=== PATIENT | female | born 1935 | race Caucasian/White ===

== ENCOUNTER 2016-05-17 04:36 | Emergency (ER) | payer OTHER ==
[~2016-05-17 04:36] MED LIST: AMLODIPINE BESYL5 MG PO; ASPIRIN81 M1 PO; AUGMENTIN875 MG PO; B-121000 MCG PO; BENAZEPRIL HCL5 MG PO; FLUOXETINE HCL10 M1 PO; FUROSEMIDE20 MG PO; FUROSEMIDE40 MG PO; GABAPENTIN100 MG PO; HUMALOG100 MG/ML SC; IMODIUM A-D2 MG PO; JANUVIA25 MG PO; LEVEMIR FL100 UNIT/M SC; LIPITOR10 MG PO; MILK OF MA400 MG/5 M PO; SENNA-LAX8.6 MG PO
--- NOTE | 2016-05-17 06:02 | DIAGNOSTIC IMAGING REPORT ---
PROCEDURE: XR FOOT 3 VIEWS BILATERAL INDICATION: Diabetes with bilateral feet ulcers. TECHNIQUE: Three views of each foot COMPARISON: Comparison is made radiographs of the left foot on 02/02/2016. FINDINGS: RIGHT FOOT: Moderate soft tissue swelling of the dorsum of the right foot. Osseous structures are markedly osteopenic. Arterial vascular calcifications. There are moderate arthritic change of the right midfoot see (suggest neuropathic changes). An old healed fracture of the base of the proximal phalanx, right second toe. There is no evidence of osteomyelitis. LEFT FOOT: Marked soft tissue swelling of the dorsum of the left foot. Osseous structures are markedly osteopenic. Arterial vascular calcifications. There are marked arthritic change of the left midfoot with past plane as (suggest neuropathic changes). Status post amputation of the left fourth toe. Old healed fracture of the base of the proximal phalanx, left second toe. There is no evidence of osteomyelitis. IMPRESSION: 1. Arterial vascular calcifications compatible with diabetes. 2. Marked osteopenia. 3. Moderate soft tissue swelling of the right foot with marked soft tissue swelling of the left foot. Consider primary lymphedema. 4. 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 5. Status post amputation of left fourth toe. 6. No evidence of osteomyelitis.
--- NOTE | 2016-05-17 07:56 | ED CLINICAL REPORT ---
Clinical Report - Physicians/Mid Levels [facility] [address] [place] [address] 05/17/2016 4:36 Patient: RODOLFO GARCIA Time Seen: 04:59. Arrived- By private vehicle. Historian- patient. History limited by vague historian. HISTORY OF PRESENT ILLNESS Chief Complaint: LOWER EXTREMITY PAIN and ; ;(foot ulcers). This started several days ago and is still present. It was gradual in onset and has been constant. The quality is noted to be aching. Symptoms located in the area of the right foot and left foot. The patient has had redness and swelling. She has had difficulty walking. ( pt previously at wound clinic for BLE diabetic ulcers. pt healed and d/c'd. pt now c/o BLE ulcerations openning 3 days ago. pt requesting MD to look at them and decide whether or not pt would require hospitalization as the last time this occurred pt was admitted to us for approx. 1 week). Patient denies a recent injury. Similar symptoms previously: REVIEW OF SYSTEMS No chills, fever, sweats, calf pain or chest pain. No cough, difficulty breathing, pedal edema, palpitations or abdominal pain. No constipation, nausea, vomiting or urinary problems. All systems otherwise negative, except as recorded above. PAST HISTORY Medications: AmLODIPine Besylate Oral. Aspirin Oral. Benazepril HCl Oral. Gabapentin Oral. Glipizide Oral. HumaLOG Subcutaneous. Januvia Oral. Lantus Subcutaneous. Laxative Pills Oral. PROzac Oral. Simvastatin Oral. Allergies: Ciprofloxacin. Sulfa Antibiotics. SOCIAL HISTORY Never smoker. No alcohol use or drug use. FAMILY HISTORY Denies family medical history. ADDITIONAL NOTES The nursing notes have been reviewed. PHYSICAL EXAM Vital Signs: 05/17/2016 04:53 BP: 151/55. HR: 88. RR: 18. O2 saturation: 98%. Temp: 98 F. Have been reviewed. Appearance: Alert. Eyes: Pupils equal, round and reactive to light. ENT: Pharynx normal. Neck: Neck supple. CVS: Normal heart rate and rhythm. Heart sounds normal. Respiratory: No respiratory distress. Breath sounds normal. Abdomen: Soft and nontender. No organomegaly. Skin: Multiple medium-sized deep oozing and crusted wounds with erythema, tenderness and increased warmth on the right foot and left foot. Extremities: Swelling, warmth, tenderness and erythema present in the right foot and left foot. No fluctuance. LABS, X-RAYS, AND EKG Laboratory Tests: CBC w Diff: (PRESLEY: 05/17/2016 05:25) ( [facility] [place]/17/[place] 06:50) Final results Test Result Flag Units (Reference) WHITE BLOOD COUNT 8.5 K/uL (4.5-11.5) RED BLOOD COUNT 4.09 M/uL (4.00-5.20) HEMOGLOBIN 11.0 L gm/dL (12.0-16.0) HEMATOCRIT 34.0 L % (36.0-46.0) MEAN CELL VOLUME 83 fL (80-100) MEAN CORPUSCULAR HGB 27 pg (26-34) MEAN CORPUSCULAR HGB CONC 32 g/dL (31-37) RED CELL DISTRIBUTION WIDTH 15.7 H % (11.6-14.8) PLATELET COUNT 250 K/uL (150-400) NEUTROPHIL % 54.4 % (50-75) LYMPH % 33.6 % (25-40) MONO % 8.2 % (3-14) EOSINOPHIL % 3.4 % (0-4) BASOPHIL % 0.4 % (0-2) CMP: (PRESLEY: 05/17/2016 05:25) ( [facility] [place] 05/17/2016 07:01) Final results Test Result Flag Units (Reference) GLUCOSE 235 H mg/dL (70-110) BUN 35 H mg/dL (7-18) CREATININE 1.5 H mg/dL (0.6-1.3) Estimated GFR 35.33 mL/min Estimated GFR- 42.83 mL/min Note: Persistent reduction over 3 months in eGFR<60 mL/min/1.73 m2 defines CKD. Patients with eGFR values>=60 mL/min/1.73 m2 may also have CKD if evidence ofpersistent proteinuria. Additional information may be foundat www.kidney.org. SODIUM 136 mmol/L (136-145) POTASSIUM 4.7 mmol/L (3.5-5.1) CHLORIDE 99 mmol/L (98-107) CARBON DIOXIDE 27 mmol/L (21-32) CALCIUM 8.8 mg/dL (8.5-10.1) TOTAL PROTEIN 8.2 g/dL (6.4-8.2) ALBUMIN 3.4 g/dL (3.3-5.0) BILIRUBIN, TOTAL 1.1 H mg/dL (0.0-1.0) ALKALINE PHOSPHATASE 108 U/L (46-116) AST (SGOT) 12 L U/L (15-37) ALT (SGPT) 17 U/L (12-78) LIPASE 119 U/L (73-393) AMYLASE 25 U/L (25-115) . Note - Tests: (PROCEDURE: XR FOOT 3 VIEWS BILATERAL INDICATION: Diabetes with bilateral feet ulcers. TECHNIQUE: Three views of each foot COMPARISON: Comparison is made radiographs of the left foot on 02/02/2016. FINDINGS: RIGHT FOOT: Moderate soft tissue swelling of the dorsum of the right foot. Osseous structures are markedly osteopenic. Arterial vascular calcifications. There are moderate arthritic change of the right midfoot see (suggest neuropathic changes). An old healed fracture of the base of the proximal phalanx, right second toe. There is no evidence of osteomyelitis. LEFT FOOT: Marked soft tissue swelling of the dorsum of the left foot. Osseous structures are markedly osteopenic. Arterial vascular calcifications. There are marked arthritic change of the left midfoot with past plane as (suggest neuropathic changes). Status post amputation of the left fourth toe. Old healed fracture of the base of the proximal phalanx, left second toe. There is no evidence of osteomyelitis. IMPRESSION: 1. Arterial vascular calcifications compatible with diabetes. 2. Marked osteopenia. 3. Moderate soft tissue swelling of the right foot with marked soft tissue swelling of the left foot. Consider primary lymphedema. 4. 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 5. Status post amputation of left fourth toe. 6. No evidence of osteomyelitis.). PROGRESS AND PROCEDURES Course of Care: Patient is stable. Consult obtained. Dr. Ovalles - Podiatry. Case discussed. Phone consult only. Will see patient in the office. Patient/family counseled. Old medical records ordered. Old records unavailable. Disposition: Discharged. Condition: stable. CLINICAL IMPRESSION Complete nail avulsion to right 2nd toe. Diabetes. Stage 2 pressure ulcer with partial thickness skin loss on the right foot and left foot. Cellulitis present. INSTRUCTIONS Warnings: Further evaluation is necessary. GENERAL WARNINGS: Return or contact your physician immediately if your condition worsens or changes unexpectedly, if not improving as expected, or if other problems arise. Your Current Medications: CONTINUE TAKING THE FOLLOWING MEDICATIONS: AmLODIPine Besylate Oral. Aspirin Oral. Benazepril HCl Oral. Gabapentin Oral. Glipizide Oral. HumaLOG Subcutaneous. Januvia Oral. Lantus Subcutaneous. Laxative Pills Oral. PROzac Oral. Simvastatin Oral. Prescription Medications: Augmentin 875 mg: take 1 tablet orally every 12 hours for 10 days. No refill. Substitution is permissible. Understanding of the discharge instructions verbalized by patient. Follow-up with: [facility], , , [facility], [address] [place] [address] [address], [place], [address]; Ab Ovalles DPM, Podiatry, , [address] [facility] [address], [place], [address] Follow up today. Call for an appointment. (Electronically signed by Zack Gallardo MD 05/23/2016 21:28) Uday RODOLFO Hennessy VisitID: [id number] Date: 05/17/2016 05/22/2016 18:57 Phoned pt to check on her healing. No answer at home phone number. (Electronically signed by Radhika Zheng R.N. - 05/22/2016 18:57) 05/23/2016 17:20 Pt states she is feeling better and she feels antibiotics are working. She states she has a nurse checking on her at home and is being seen at the wound clinic. She verbalizes understanding to return to ED if needed (Electronically signed by Juan Cruz R.N. - 05/23/2016 17:20)
--- NOTE | 2016-05-17 07:56 | ED ORDER SUMMARY ---
..... Patient: RODOLFO GARCIA OrderSheet [facility] VisitID: [id number] [address] [place] [address] 81y, F Registration Date/Time: 05/17/2016 ORDER SHEET Weight: 115.6 kg (stated) Allergies: Ciprofloxacin, Sulfa Antibiotics GENERAL ORDERS: Foot 3V Right Urgent (05:07 05/17/2016 Jessica AVILA) (Cancelled: Other5:10 CHagyobany ER Chief Vendor Quality) Foot 3V Left Urgent (05:07 05/17/2016 Jessica AVILA) (Cancelled: Other5:10 CHagyobany ER Chief Vendor Quality) Blood Culture (No) (N/A) Urgent (05:05/17/2016 Jessica AVILA) (Ack 5:13 Cesar ER Chief Vendor Quality) (5:51 ALawrence ER Tech1) CBC w Diff Urgent (05:08 05/17/2016 Jessica AVILA) (Ack 5:13 Cesar ER Chief Vendor Quality) (5:32 JBullard R.N.) CMP Urgent (05:08 05/17/2016 Jessica AVILA) (Ack 5:13 Cesar ER Chief Vendor Quality) (5:32 JBullard R.N.) Amylase Urgent (05:08 05/17/2016 Jesscia AVILA) (Ack 5:13 Cesar ER Chief Vendor Quality) (5:32 JBullard R.N.) Lipase Urgent (05:08 05/17/2016 Jessica AVILA) (Ack 5:13 Cesar ER Chief Vendor Quality) (5:32 JBullard R.N.) Lactate, Serum Urgent (05:08 05/17/2016 Jessica AVILA) (Ack 5:13 Cesar ER Chief Vendor Quality) (5:32 JBullard R.N.) Foot 3V Bilat Urgent (05:10 05/17/2016 Cesar ER Chief Vendor Quality written order Jessica AVILA) (Ack 5:13 Cesar ER Chief Vendor Quality) (5:45 Stacy) Culture, Wound Surface (Foot) (L foot) Urgent (07:15 05/17/2016 Jessica AVILA) (Ack 7:18 Cesar ER Chief Vendor Quality) (7:30 JBluciano R.N.) MEDICATION ORDERS: Augmentin PO 875 mg (NOW) (07:16 05/17/2016 Jessica AVILA) (Ack 7:22 Rosalina Francisco) (7:27 Rosalina Francisco) IV FLUIDS: IV Saline Lock (05:08 05/17/2016 Jessica AVILA) (5:33 Maryjane Francisco) ORDER SHEET NOTES: [Electronically signed by Krish Parker R.N. (08:52 05/17/2016)] [Electronically signed by Zack Gallardo MD (21:28 05/23/2016)] [Electronically locked/signed by Krish Parker R.N. (08:52 05/17/2016)]
--- NOTE | 2016-05-17 07:56 | ED CLINICAL REPORT ---
Clinical Report - Physicians/Mid Levels [facility] [address] [place] [address] 05/17/2016 4:36 Patient: RODOLFO GARCIA Time Seen: 04:59. Arrived- By private vehicle. Historian- patient. History limited by vague historian. HISTORY OF PRESENT ILLNESS Chief Complaint: LOWER EXTREMITY PAIN and ; ;(foot ulcers). This started several days ago and is still present. It was gradual in onset and has been constant. The quality is noted to be aching. Symptoms located in the area of the right foot and left foot. The patient has had redness and swelling. She has had difficulty walking. ( pt previously at wound clinic for BLE diabetic ulcers. pt healed and d/c'd. pt now c/o BLE ulcerations openning 3 days ago. pt requesting MD to look at them and decide whether or not pt would require hospitalization as the last time this occurred pt was admitted to us for approx. 1 week). Patient denies a recent injury. Similar symptoms previously: REVIEW OF SYSTEMS No chills, fever, sweats, calf pain or chest pain. No cough, difficulty breathing, pedal edema, palpitations or abdominal pain. No constipation, nausea, vomiting or urinary problems. All systems otherwise negative, except as recorded above. PAST HISTORY Medications: AmLODIPine Besylate Oral. Aspirin Oral. Benazepril HCl Oral. Gabapentin Oral. Glipizide Oral. HumaLOG Subcutaneous. Januvia Oral. Lantus Subcutaneous. Laxative Pills Oral. PROzac Oral. Simvastatin Oral. Allergies: Ciprofloxacin. Sulfa Antibiotics. SOCIAL HISTORY Never smoker. No alcohol use or drug use. FAMILY HISTORY Denies family medical history. ADDITIONAL NOTES The nursing notes have been reviewed. PHYSICAL EXAM Vital Signs: 05/17/2016 04:53 BP: 151/55. HR: 88. RR: 18. O2 saturation: 98%. Temp: 98 F. Have been reviewed. Appearance: Alert. Eyes: Pupils equal, round and reactive to light. ENT: Pharynx normal. Neck: Neck supple. CVS: Normal heart rate and rhythm. Heart sounds normal. Respiratory: No respiratory distress. Breath sounds normal. Abdomen: Soft and nontender. No organomegaly. Skin: Multiple medium-sized deep oozing and crusted wounds with erythema, tenderness and increased warmth on the right foot and left foot. Extremities: Swelling, warmth, tenderness and erythema present in the right foot and left foot. No fluctuance. LABS, X-RAYS, AND EKG Laboratory Tests: CBC w Diff: (PRESLEY: 05/17/2016 05:25) ( [facility] [place] 05/17/2016 06:50) Final results Test Result Flag Units (Reference) WHITE BLOOD COUNT 8.5 K/uL (4.5-11.5) RED BLOOD COUNT 4.09 M/uL (4.00-5.20) HEMOGLOBIN 11.0 L gm/dL (12.0-16.0) HEMATOCRIT 34.0 L % (36.0-46.0) MEAN CELL VOLUME 83 fL (80-100) MEAN CORPUSCULAR HGB 27 pg (26-34) MEAN CORPUSCULAR HGB CONC 32 g/dL (31-37) RED CELL DISTRIBUTION WIDTH 15.7 H % (11.6-14.8) PLATELET COUNT 250 K/uL (150-400) NEUTROPHIL % 54.4 % (50-75) LYMPH % 33.6 % (25-40) MONO % 8.2 % (3-14) EOSINOPHIL % 3.4 % (0-4) BASOPHIL % 0.4 % (0-2) CMP: (PRESLEY: 05/17/2016 05:25) ( [facility] [place] 05/17/2016 07:01) Final results Test Result Flag Units (Reference) GLUCOSE 235 H mg/dL (70-110) BUN 35 H mg/dL (7-18) CREATININE 1.5 H mg/dL (0.6-1.3) Estimated GFR 35.33 mL/min Estimated GFR- 42.83 mL/min Note: Persistent reduction over 3 months in eGFR<60 mL/min/1.73 m2 defines CKD. Patients with eGFR values>=60 mL/min/1.73 m2 may also have CKD if evidence ofpersistent proteinuria. Additional information may be foundat www.[email or web address].org. SODIUM 136 mmol/L (136-145) POTASSIUM 4.7 mmol/L (3.5-5.1) CHLORIDE 99 mmol/L (98-107) CARBON DIOXIDE 27 mmol/L (21-32) CALCIUM 8.8 mg/dL (8.5-10.1) TOTAL PROTEIN 8.2 g/dL (6.4-8.2) ALBUMIN 3.4 g/dL (3.3-5.0) BILIRUBIN, TOTAL 1.1 H mg/dL (0.0-1.0) ALKALINE PHOSPHATASE 108 U/L (46-116) AST (SGOT) 12 L U/L (15-37) ALT (SGPT) 17 U/L (12-78) LIPASE 119 U/L (73-393) AMYLASE 25 U/L (25-115) . Note - Tests: (PROCEDURE: XR FOOT 3 VIEWS BILATERAL INDICATION: Diabetes with bilateral feet ulcers. TECHNIQUE: Three views of each foot COMPARISON: Comparison is made radiographs of the left foot on 02/02/2016. FINDINGS: RIGHT FOOT: Moderate soft tissue swelling of the dorsum of the right foot. Osseous structures are markedly osteopenic. Arterial vascular calcifications. There are moderate arthritic change of the right midfoot see (suggest neuropathic changes). An old healed fracture of the base of the proximal phalanx, right second toe. There is no evidence of osteomyelitis. LEFT FOOT: Marked soft tissue swelling of the dorsum of the left foot. Osseous structures are markedly osteopenic. Arterial vascular calcifications. There are marked arthritic change of the left midfoot with past plane as (suggest neuropathic changes). Status post amputation of the left fourth toe. Old healed fracture of the base of the proximal phalanx, left second toe. There is no evidence of osteomyelitis. IMPRESSION: 1. Arterial vascular calcifications compatible with diabetes. 2. Marked osteopenia. 3. Moderate soft tissue swelling of the right foot with marked soft tissue swelling of the left foot. Consider primary lymphedema. 4. 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 5. Status post amputation of left fourth toe. 6. No evidence of osteomyelitis.). PROGRESS AND PROCEDURES Course of Care: Patient is stable. Consult obtained. Dr. Ovalles - Podiatry. Case discussed. Phone consult only. Will see patient in the office. Patient/family counseled. Old medical records ordered. Old records unavailable. Disposition: Discharged. Condition: stable. CLINICAL IMPRESSION Complete nail avulsion to right 2nd toe. Diabetes. Stage 2 pressure ulcer with partial thickness skin loss on the right foot and left foot. Cellulitis present. INSTRUCTIONS Warnings: Further evaluation is necessary. GENERAL WARNINGS: Return or contact your physician immediately if your condition worsens or changes unexpectedly, if not improving as expected, or if other problems arise. Your Current Medications: CONTINUE TAKING THE FOLLOWING MEDICATIONS: AmLODIPine Besylate Oral. Aspirin Oral. Benazepril HCl Oral. Gabapentin Oral. Glipizide Oral. HumaLOG Subcutaneous. Januvia Oral. Lantus Subcutaneous. Laxative Pills Oral. PROzac Oral. Simvastatin Oral. Prescription Medications: Augmentin 875 mg: take 1 tablet orally every 12 hours for 10 days. No refill. Substitution is permissible. Understanding of the discharge instructions verbalized by patient. Follow-up with: [facility], , , [facility], [address] [place] [address] [address], [place], [address]; Ab Ovalles DPM, Podiatry, , [address] [facility] [address], [place], [address] Follow up today. Call for an appointment. (Electronically signed by Zack Gallardo MD 05/23/2016 21:28) Uday RODOLFO Hennessy VisitID: [id number] Date: 05/17/2016 05/22/2016 18:57 Phoned pt to check on her healing. No answer at home phone number. (Electronically signed by Radhika Zheng R.N. - 05/22/2016 18:57) 05/23/2016 17:20 Pt states she is feeling better and she feels antibiotics are working. She states she has a nurse checking on her at home and is being seen at the wound clinic. She verbalizes understanding to return to ED if needed (Electronically signed by Juan Cruz R.N. - 05/23/2016 17:20)
--- NOTE | 2016-05-17 07:56 | ED ORDER SUMMARY ---
..... Patient: RODOLFO GARCIA OrderSheet [facility] VisitID: [id number] [address] [place] [address] 81y, F Registration Date/Time: 05/17/2016 ORDER SHEET Weight: 115.6 kg (stated) Allergies: Ciprofloxacin, Sulfa Antibiotics GENERAL ORDERS: Foot 3V Right Urgent (05:07 05/17/2016 Jessica AVILA) (Cancelled: Other5:10 CHagyobany ER Area Operations Manager) Foot 3V Left Urgent (05:07 05/17/2016 Jessica AVILA) (Cancelled: Other5:10 CHagyobany ER Area Operations Manager) Blood Culture (No) (N/A) Urgent (05:05/17/2016 Jessica AVILA) (Ack 5:13 Cesar ER Area Operations Manager) (5:51 ALawrence ER Tech1) CBC w Diff Urgent (05:08 05/17/2016 Jessica AVILA) (Ack 5:13 Cesar ER Area Operations Manager) (5:32 JBullard R.N.) CMP Urgent (05:08 05/17/2016 Jessica AVILA) (Ack 5:13 Cesar ER Area Operations Manager) (5:32 JBullard R.N.) Amylase Urgent (05:08 05/17/2016 Jessica AVILA) (Ack 5:13 Cesar ER Area Operations Manager) (5:32 JBullard R.N.) Lipase Urgent (05:08 05/17/2016 Jessica AVILA) (Ack 5:13 Cesar ER Area Operations Manager) (5:32 JBullard R.N.) Lactate, Serum Urgent (05:08 05/17/2016 Jessica AVILA) (Ack 5:13 Cesar ER Area Operations Manager) (5:32 JBullard R.N.) Foot 3V Bilat Urgent (05:10 05/17/2016 Cesar ER Area Operations Manager written order Jessica AVILA) (Ack 5:13 Cesar ER Area Operations Manager) (5:45 Stacy) Culture, Wound Surface (Foot) (L foot) Urgent (07:15 05/17/2016 Jessica AVILA) (Ack 7:18 Cesar ER Area Operations Manager) (7:30 JBluciano R.N.) MEDICATION ORDERS: Augmentin PO 875 mg (NOW) (07:16 05/17/2016 Jessica AVILA) (Ack 7:22 Rosalina Francisco) (7:27 Rosalina Francisco) IV FLUIDS: IV Saline Lock (05:08 05/17/2016 Jessica AVILA) (5:33 Maryjane Francisco) ORDER SHEET NOTES: [Electronically signed by Krish Parker R.N. (08:52 05/17/2016)] [Electronically signed by Zack Gallardo MD (21:28 05/23/2016)] [Electronically locked/signed by Krish Parker R.N. (08:52 05/17/2016)]
--- NOTE | 2016-05-17 07:56 | ED NURSING NOTES ---
Clinical Report - Nurses [facility] [place] [address] 05/17/2016 4:36 Patient: RODOLFO GARCIA TRIAGE Triage time 0454. Acuity: LEVEL 3. Chief Complaint: RIGHT LOWER EXTREMITY PAIN, SWELLING, NUMBNESS and TINGLING. Location of symptoms- (diabetic ulcers). LEFT LOWER EXTREMITY PAIN, SWELLING, NUMBNESS and TINGLING. Location of symptoms- (diabetic ulcers). --05:11 Brandon Matson R.N. 04:53 05/17/16. BP: 151/55. HR: 88. RR: 18. O2 saturation: 98%. Temp: 98 F. Pain level now 3. --05:11 Brandon Matson R.N. Weight: 115.6 kg stated. Height/Length: 66 inches Per Patient. BMI: 41.2. --05:10 Brandon Matson R.N. Medications AmLODIPine Besylate Oral. Aspirin Oral. Benazepril HCl Oral. Gabapentin Oral. Glipizide Oral. HumaLOG Subcutaneous. Januvia Oral. Lantus Subcutaneous. Laxative Pills Oral. PROzac Oral. Simvastatin Oral. --05:01 Brandon Matson R.N. Allergies Ciprofloxacin. Sulfa Antibiotics. --05:01 Brandon Matson R.N. History Arrived by private vehicle. Historian: patient and family. Accompanied by family. No injury occurred. This occurred (3 days). ( pt previously at wound clinic for BLE diabetic ulcers. pt healed and d/c'd. pt now c/o BLE ulcerations openning 3 days ago. pt requesting MD to look at them and decide whether or not pt would require hospitalization as the last time this occurred pt was admitted to us for approx. 1 week.). 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 PAST MEDICAL HX: Tetanus status: up-to-date. FALL RISK ASSESSMENT: Fall risk assessment completed. No fall risk identified. NUTRITIONAL RISK ASSESSMENT: The nutritional risk assessment revealed no deficiencies. FUNCTIONAL ASSESSMENT: Functional assessment: no impairments noted. LEARNING NEEDS ASSESSMENT: The learning needs assessment revealed no barriers. SKIN INTEGRITY ASSESSMENT: Skin integrity risk assessment completed. No skin integrity risk identified. --05:11 Brandon Matson R.N. PROBLEMS: Pneumonia. Cancer. Neuropathy. Menopause present. Heart Disease. Diabetes Mellitus. --05:01 Brandon Matson R.N. ADDITIONAL SURGERIES: Amputation- toe. Angioplasty of blood vessel. Angioplasty of vein. Tonsillectomy. --05:01 Brandon Matson R.N. Interventions ID band on patient. --05:11 Brandon Matson R.N. PHYSICAL ASSESSMENT To room via wheelchair. GENERAL / NEURO / PSYCH: Oriented X 4. Alert. Appears in no acute distress. EXTREMITIES: Right foot: of the plantar aspect of the foot. Left foot: of the plantar lateral aspect of the foot. SKIN: Skin is warm and dry. --05:13 Brandon Matson R.N. NURSING PROGRESS NOTES Patient gowned. Reassurance given. Patient identifiers checked. Call light placed in reach. Side rails up x 2. Bed placed in lowest position. Brakes of bed on. --05:13 Brandon Matson R.N. 05:33 05/17/2016 Site #1 started via IV in the right antecubital space with an 20g angiocath, with aseptic technique and good blood return; one attempt. Blood drawn: rainbow set. Labeled in the presence of the patient and sent to the lab. Saline lock flushed with saline. --05:33 Brandon Matson R.N. <<STRICKEN ENTRY-- 05:40. Patient ID band checked for patient name and birthdate: patient confirmed. Blood samples drawn from the right antecubital space with syringe and 23g butterfly by nurse per protocol ; labeled in presence of the patient and sent to lab: blood culture (1st set). --05:53 Prudence Zepeda ER Tech1 --END STRIKE>> Correction --05:54 Prudence Zepeda ER Tech1 05:40. Patient ID band checked for patient name and birthdate: patient confirmed. Blood samples drawn from the right antecubital space with syringe and 23g butterfly by tech per protocol ; labeled in presence of the patient and sent to lab: blood culture (1st set). --05:55 Duane Prudence, Tech1 05:48. Patient ID band checked for patient name and birthdate: patient confirmed. Blood samples drawn from the right antecubital space with syringe and 23g butterfly by ticckle per protocol ; labeled in presence of the patient and sent to lab: blood culture (2nd set). --05:54 Luci Zepedasa, IVANNA Tech1 07:12 05/17/16. Care transferred and report received. --07:12 Krish Parker R.N. 07:05/17/2016 Augmentin (Amoxicillin-Pot Clavulanate) PO 875 mg given. Allergies verified and confirmed 5 rights. --07:27 Krish Parker R.N. 07:05/17/16. --07:27 Krish Parker R.N. 07:05/17/16. BP: 144/72. HR: 69. RR: 12. O2 saturation: 100% on room air. --07:27 Krish Parker R.N. 07:30 05/17/16. ( Wound culture taken of L foot per order). --07:30 Krish Parker R.N. 08:05/17/16. ( Dressing applied to left and right foot, sterile with telfa, non-adherant dressing.). --08:06 Krish Parker R.N. DISPOSITION / DISCHARGE 08:05/17/2016 Site #1 removed upon discharge. Catheter intact. --08:05 Krish Parker R.N. 08:05/17/16. --08:05 Krish Parker R.N. 08:05/17/16. BP: 134/74. HR: 82. RR: 16. O2 saturation: 99% on room air. Temp: 98.2 F (oral). --08:05 Krsih Parker R.N. 08:05/17/16. Condition at departure: improved. The goals identified in the patient's plan of care were met. No learning barriers present. Discharge instructions provided and reviewed with the patient. Reviewed warnings. Reviewed medication(s). Treatments reviewed. Patient verbalized understanding. Written instructions provided in Israeli. The patient was discharged by the physician. She was discharged home and accompanied by family. She left the Emergency Department in a wheelchair and via private vehicle. Family member driving. FALL RISK ASSESSMENT: Fall risk assessment completed. No fall risk identified. --08:06 Krish Parker R.N. 08:07 05/17/16. Reviewed referral to a block cuber (Will follow up today). --08:07 Krish Parker R.N. Departure time: 0830. --08:51 Krish Parker R.N. Locked/Released at 05/17/2016 8:52 by Krish Parker R.N.
--- NOTE | 2016-05-17 07:56 | ED NURSING NOTES ---
Clinical Report - Nurses [facility] [place] [address] 05/17/2016 4:36 Patient: RODOLFO GARCIA TRIAGE Triage time 0454. Acuity: LEVEL 3. Chief Complaint: RIGHT LOWER EXTREMITY PAIN, SWELLING, NUMBNESS and TINGLING. Location of symptoms- (diabetic ulcers). LEFT LOWER EXTREMITY PAIN, SWELLING, NUMBNESS and TINGLING. Location of symptoms- (diabetic ulcers). --05:11 Brandon Matson R.N. 04:53 05/17/16. BP: 151/55. HR: 88. RR: 18. O2 saturation: 98%. Temp: 98 F. Pain level now 3. --05:11 Brandon Matson R.N. Weight: 115.6 kg stated. Height/Length: 66 inches Per Patient. BMI: 41.2. --05:10 Brandon Matson R.N. Medications AmLODIPine Besylate Oral. Aspirin Oral. Benazepril HCl Oral. Gabapentin Oral. Glipizide Oral. HumaLOG Subcutaneous. Januvia Oral. Lantus Subcutaneous. Laxative Pills Oral. PROzac Oral. Simvastatin Oral. --05:01 Brandon Matson R.N. Allergies Ciprofloxacin. Sulfa Antibiotics. --05:01 Brandon Matson R.N. History Arrived by private vehicle. Historian: patient and family. Accompanied by family. No injury occurred. This occurred (3 days). ( pt previously at wound clinic for BLE diabetic ulcers. pt healed and d/c'd. pt now c/o BLE ulcerations openning 3 days ago. pt requesting MD to look at them and decide whether or not pt would require hospitalization as the last time this occurred pt was admitted to us for approx. 1 week.). 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 PAST MEDICAL HX: Tetanus status: up-to-date. FALL RISK ASSESSMENT: Fall risk assessment completed. No fall risk identified. NUTRITIONAL RISK ASSESSMENT: The nutritional risk assessment revealed no deficiencies. FUNCTIONAL ASSESSMENT: Functional assessment: no impairments noted. LEARNING NEEDS ASSESSMENT: The learning needs assessment revealed no barriers. SKIN INTEGRITY ASSESSMENT: Skin integrity risk assessment completed. No skin integrity risk identified. --05:11 Brandon Matson R.N. PROBLEMS: Pneumonia. Cancer. Neuropathy. Menopause present. Heart Disease. Diabetes Mellitus. --05:01 Brandon Matson R.N. ADDITIONAL SURGERIES: Amputation- toe. Angioplasty of blood vessel. Angioplasty of vein. Tonsillectomy. --05:01 Brandon Matson R.N. Interventions ID band on patient. --05:11 Brandon Matson R.N. PHYSICAL ASSESSMENT To room via wheelchair. GENERAL / NEURO / PSYCH: Oriented X 4. Alert. Appears in no acute distress. EXTREMITIES: Right foot: of the plantar aspect of the foot. Left foot: of the plantar lateral aspect of the foot. SKIN: Skin is warm and dry. --05:13 Brandon Matson R.N. NURSING PROGRESS NOTES Patient gowned. Reassurance given. Patient identifiers checked. Call light placed in reach. Side rails up x 2. Bed placed in lowest position. Brakes of bed on. --05:13 Brandon Matson R.N. 05:33 05/17/2016 Site #1 started via IV in the right antecubital space with an 20g angiocath, with aseptic technique and good blood return; one attempt. Blood drawn: rainbow set. Labeled in the presence of the patient and sent to the lab. Saline lock flushed with saline. --05:33 Brandon Matson R.N. <<STRICKEN ENTRY-- 05:40. Patient ID band checked for patient name and birthdate: patient confirmed. Blood samples drawn from the right antecubital space with syringe and 23g butterfly by nurse per protocol ; labeled in presence of the patient and sent to lab: blood culture (1st set). --05:53 Prudence Zepeda ER Tech1 --END STRIKE>> Correction --05:54 Prudence Zepeda ER Tech1 05:40. Patient ID band checked for patient name and birthdate: patient confirmed. Blood samples drawn from the right antecubital space with syringe and 23g butterfly by tech per protocol ; labeled in presence of the patient and sent to lab: blood culture (1st set). --05:55 Duane Prudence, Tech1 05:48. Patient ID band checked for patient name and birthdate: patient confirmed. Blood samples drawn from the right antecubital space with syringe and 23g butterfly by [place] per protocol ; labeled in presence of the patient and sent to lab: blood culture (2nd set). --05:54 Luci Zepedasa, IVANNA Tech1 07:12 05/17/16. Care transferred and report received. --07:12 Krish Parker R.N. 07:05/17/2016 Augmentin (Amoxicillin-Pot Clavulanate) PO 875 mg given. Allergies verified and confirmed 5 rights. --07:27 Krish Parker R.N. 07:05/17/16. --07:27 Krish Parker R.N. 07:05/17/16. BP: 144/72. HR: 69. RR: 12. O2 saturation: 100% on room air. --07:27 Krish Parker R.N. 07:30 05/17/16. ( Wound culture taken of L foot per order). --07:30 Krish Parker R.N. 08:05/17/16. ( Dressing applied to left and right foot, sterile with telfa, non-adherant dressing.). --08:06 Krish Parker R.N. DISPOSITION / DISCHARGE 08:05/17/2016 Site #1 removed upon discharge. Catheter intact. --08:05 Krish Parker R.N. 08:05/17/16. --08:05 Krish Parker R.N. 08:05/17/16. BP: 134/74. HR: 82. RR: 16. O2 saturation: 99% on room air. Temp: 98.2 F (oral). --08:05 Krish Parker R.N. 08:05/17/16. Condition at departure: improved. The goals identified in the patient's plan of care were met. No learning barriers present. Discharge instructions provided and reviewed with the patient. Reviewed warnings. Reviewed medication(s). Treatments reviewed. Patient verbalized understanding. Written instructions provided in Ukrainian. The patient was discharged by the physician. She was discharged home and accompanied by family. She left the Emergency Department in a wheelchair and via private vehicle. Family member driving. FALL RISK ASSESSMENT: Fall risk assessment completed. No fall risk identified. --08:06 Krish Parker R.N. 08:07 05/17/16. Reviewed referral to a manager studio (Will follow up today). --08:07 Krish Parker R.N. Departure time: 0830. --08:51 Krish Parker R.N. Locked/Released at 05/17/2016 8:52 by Krish Parker R.N.
--- NOTE | 2016-05-23 21:28 | ED DISCHARGE INSTRUCTIONS ---
Patient: RODOLFO GARCIA General Instructions [facility] VisitID: [id number] [place] [address] 81y, F Registration Date/Time: 05/17/2016 Complete nail avulsion to right 2nd toe. Diabetes. Stage 2 pressure ulcer with partial thickness skin loss on the right foot and left foot. Cellulitis present. INSTRUCTIONS Warnings: Further evaluation is necessary. GENERAL WARNINGS: Return or contact your physician immediately if your condition worsens or changes unexpectedly, if not improving as expected, or if other problems arise. Your Current Medications: CONTINUE TAKING THE FOLLOWING MEDICATIONS: AmLODIPine Besylate Oral. Aspirin Oral. Benazepril HCl Oral. Gabapentin Oral. Glipizide Oral. HumaLOG Subcutaneous. Januvia Oral. Lantus Subcutaneous. Laxative Pills Oral. PROzac Oral. Simvastatin Oral. Prescription Medications: Augmentin 875 mg: take 1 tablet orally every 12 hours for 10 days. No refill. Substitution is permissible. Understanding of the discharge instructions verbalized by patient. Follow-up with: [facility], , , [facility], [address] [place] [address] [address], [place], [address]; Ab Ovalles DPM, Podiatry, , [address] [place] [address]. [address], [place], [address] Follow up today. Call for an appointment. ADDITIONAL INFORMATION Diabetes (General Information) Cells of the body need glucose (sugar) for fuel. Insulin is the hormone in the body that lets glucose move from the blood into the cells. Diabetes is a chronic health condition where the body is not able to produce enough insulin, or does not respond well to its own insulin. Because the glucose in the blood cannot get into the cells, it builds up in the blood causing high blood sugar (hyperglycemia). Your actual blood sugar level is a result of the balance between several factors. These include what kind of food you eat and how much of it you eat, how much exercise you get, and the amount of insulin present in your body. Eating too much of the wrong kinds of food or not taking diabetes medicine on time can cause high blood sugar. Infections can cause high blood sugar even if you are taking medicines correctly. Missing meals, not eating enough food, or taking too much diabetes medicine can lead to low blood sugar. Untreated over long periods of time, diabetes can cause serious problems such as heart disease, stroke, kidney failure, blindness, nerve pain or loss of feeling in the legs and feet, and gangrene of the feet. With good treatment keeping your blood sugar under control, you can prevent or delay the complications of diabetes. Normal blood sugar levels are 70-130 one to two hours before a meal and not more than 180 two hours after a meal. Home Care: Follow your prescribed diabetic diet and take insulin or oral diabetic medicine exactly as ordered. Monitor blood sugars as advised. Keep a log of your results. This will help your doctor adjust your medicines to keep your blood sugar under control. Try to achieve your ideal weight. Proper diet and exercise can reduce or eliminate the need to take diabetes medicine. Avoid tobacco smoking, which worsens the effect of diabetes on your circulation. The risk of a heart attack in a diabetic is 15 times more likely if you smoke. Pay attention to good foot care. If you have lost feeling in your feet you may not notice an injury or infection. Check your feet and between your toes at least once a week. Wear a medical alert bracelet or carry a card in your wallet explaining that you are diabetic. In the event that you become very ill and are unable to give this information, it will help medical personnel provide proper care. If you become sick with a cold, the flu, or an infection (viral or bacterial), please do the following: Review your diabetes sick plan and contact your physician as instructed. You may have been advised to call the doctor immediately if: Your blood sugar is above 240 while taking your diabetes medication Your urine ketone levels are above normal or showing high levels of ketones You have been vomiting more than 6 hours You experience difficulty to trouble breathing You develop a high fever or you have had a fever for a couple of days and you aren't getting better You become light-headed and more sleepy than usual Keep taking your oral diabetes medicine (pills) even if you have been vomiting and feeling sick. Contact your doctor immediately for advice because you may need insulin to lower your blood sugar until you recover from your illness. Keep taking your insulin, even if you have been vomiting and feeling sick. Call your doctor immediately and ask if a temporary adjustment of your insulin dose is needed based on your blood glucose (sugar) results. Check your blood sugar every 2 to 4 hours, or at least 4 times a day. Check your keytones often. If you are vomiting and having diarrhea, monitor them more frequently. Don't skip meals. Try to eat small meals on a regular schedule, even if you do not have an appetite. Drink water or other calorie-free, non-caffeinated liquids to stay hydrated. If you are nauseated or vomiting, drink small amounts (sips, a teaspoon) every 5 minutes. To prevent dehydration, try to drink a cup or 8 ounces of fluids every hour while you are awake. Always carry a source of fast-acting sugar with you in case you get symptoms of low blood sugar (below 70). At the first sign of low blood sugar, eat or drink 15 to 20 grams of fast-acting sugar to raise your blood sugar. Examples include: 3 to 4 glucose tablets (found at most drugstores) 4 ounces (1/2 cup) of regular (not diet) softdrinks 4 ounces (1/2 cup) of any fruit juice 8 ounces (1 cup) of milk 5 to 6 pieces of hard candy 1 tablespoon of honey Check your blood sugar 15 minutes after treating yourself. If it is still low (below 70), take another 15 to 20 grams of fast-acting sugar. Test again in 15 minutes. If it returns to normal (70 or above), eat a snack or meal to keep your blood sugar in a safe range. If it remains low, call your doctor or go to an emergency room. Follow Up with your doctor as advised by our staff. For more information, contact the [employer]. www.diabetes.org or 516-561-1437. Get Prompt Medical Attention if any of the following occur: HIGH BLOOD SUGAR: frequent urination, dizziness, drowsiness, thirst, headache, nausea or vomiting, abdominal pain, vision changes, fast breathing, confusion or loss of consciousness LOW BLOOD SUGAR: fatigue, headache, shakes, excess sweating, hunger, feeling anxious or restless, vision changes, drowsiness, weakness, confusion or loss of consciousness Chest pain or shortness of breath Dizziness or fainting Weakness of an arm or leg or one side of the face Trouble with speech or vision Decubitus Ulcer A decubitus ulcer starts as a pressure sore (red, tender area on skin). It is caused by lying on a bony area for long periods of time without turning, causing a decrease in blood flow to that part of the skin. Decubitus ulcers usually occur on the lower back, buttocks or heels in persons who spend most or all of their time in bed. Healing time is slow and depends on the size and depth of the ulcer. If a decubitus ulcer becomes infected, it will cause redness in the skin around the ulcer and pus will drain from the wound. If not treated early, a decubitus infection can spread to the bloodstream or nearby bone. Home care The following guidelines will help you care for your wound at home: All ulcers should be looked at every day with good lighting to watch for signs of infection. At the same time, check other skin pressure points for early signs of a skin changes. Changing positions every few hours allows blood to flow to the pressure areas. This is essential for healing to occur. Use of special mattresses (foam, water, air mattresses) and gelpads will help reduce the pressure on the skin. Special skin coverings that remain in place may be prescribed. If a simple bandage is used, change it daily and clean the ulcer with sterile saline or another solution advised by your doctor. Pat dry. Apply any prescribed lotion or cream. Cover with a dry clean gauze pad. Bed linen should be kept clean and dry. Avoid soiling the ulcer with feces or urine. If this is not possible, minimize the time of contact with the feces or urine. Follow-up care Follow up with your doctor as advised by our staff. When to seek medical care Get prompt medical attention if any of the following occur: Increasing redness around the wound Increasing local pain or swelling Pus draining from a wound (not already treated) Unexplained fever over 100.4F (38.0C) oral, or higher Amoxicillin Trihydrate, Clavulanate Potassium Oral tablet What is this medicine? AMOXICILLIN; CLAVULANIC ACID (a mox i JOANIE in; KENDALL ny id) is a penicillin antibiotic. It is used to treat certain kinds of bacterial infections. It will not work for colds, flu, or other viral infections. How should I use this medicine? Take this medicine by mouth with a full glass of water. Follow the directions on the prescription label. Take at the start of a meal. Do not crush or chew. If the tablet has a score line, you may cut it in half at the score line for easier swallowing. Take your medicine at regular intervals. Do not take your medicine more often than directed. Take all of your medicine as directed even if you think you are better. Do not skip doses or stop your medicine early. Talk to your workcell operator regarding the use of this medicine in children. Special care may be needed. What side effects may I notice from receiving this medicine? Side effects that you should report to your doctor or health healthcare corporate account director as soon as possible: allergic reactions like skin rash, itching or hives, swelling of the face, lips, or tongue breathing problems dark urine fever or chills, sore throat redness, blistering, peeling or loosening of the skin, including inside the mouth seizures trouble passing urine or change in the amount of urine unusual bleeding, bruising unusually weak or tired white patches or sores in the mouth or throat Side effects that usually do not require medical attention (report to your doctor or health healthcare corporate account director if they continue or are bothersome): diarrhea dizziness headache nausea, vomiting stomach upset vaginal or anal irritation What may interact with this medicine? allopurinol anticoagulants control pills methotrexate probenecid What if I miss a dose? If you miss a dose, take it as soon as you can. If it is almost time for your next dose, take only that dose. Do not take double or extra doses. Where should I keep my medicine? Keep out of the reach of children. Store at room temperature below 25 degrees C (77 degrees F). Keep container tightly closed. Throw away any unused medicine after the expiration date. What should I tell my health care provider before I take this medicine? They need to know if you have any of these conditions: bowel disease, like colitis kidney disease liver disease mononucleosis an unusual or allergic reaction to amoxicillin, penicillin, cephalosporin, other antibiotics, clavulanic acid, other medicines, foods, dyes, or preservatives or trying to get breast-feeding What should I watch for while using this medicine? Tell your doctor or health healthcare corporate account director if your symptoms do not improve. Do not treat diarrhea with over the counter products. Contact your doctor if you have diarrhea that lasts more than 2 days or if it is severe and watery. If you have diabetes, you may get a false-positive result for sugar in your urine. Check with your doctor or health healthcare corporate account director. control pills may not work properly while you are taking this medicine. Talk to your doctor about using an extra method of control. You have been given the following additional information: Diabetes, General Info Decubitus Ulcer Amoxicillin Trihydrate, Clavulanate Potassium Oral tablet (Electronically signed by Zack Gallardo MD 05/23/2016 21:28)
--- NOTE | 2016-05-23 21:28 | ED MED RECONCILIATION SUMMARY ---
Patient: RODOLFO GARCIA Medication Reconciliation Report [facility] VisitID: [id number] [address] [place] [address] 81y, F Registration Date/Time: 05/17/2016 Weight: 115.6 kg Height/Length: 66 in. BMI: 41.2 ALLERGIES: Ciprofloxacin, Sulfa Antibiotics The patient's Home Medications are listed below: CONTINUE TAKING THE FOLLOWING MEDICATIONS: AmLODIPine Besylate Oral Aspirin Oral Benazepril HCl Oral Gabapentin Oral Glipizide Oral HumaLOG Subcutaneous Januvia Oral Lantus Subcutaneous Laxative Pills Oral PROzac Oral Simvastatin Oral The source(s) of the original Home Medication information: Not obtained. The following Medications were given to the patient in the Emergency Department: Augmentin [PO] PO 875 mg, administered: 05/17/2016 7:27:00 AM The following Medications were prescribed to the patient: Augmentin 875 mg: take 1 tablet orally every 12 hours for 10 days. No refill. Substitution is permissible. -- Zack Gallardo MD
--- NOTE | 2016-05-23 21:28 | ED MAR SUMMARY ---
..... Medication Administration Record [facility] [address] [place] [address] Patient: RODOLFO GARCIA Visit ID: [id number] 81y, F Weight: 115.6 kg Height/Length: 66 in BMI: 41.2 ALLERGIES: Ciprofloxacin, Sulfa Antibiotics Given 07:27 05/17/2016 Krish Parker R.N. Medication Administered: AUGMENTIN [PO] (AMOXICILLIN-POT CLAVULANATE), Dose: 875 mg PO. Medication Ordered: Augmentin PO 875 mg (NOW).
--- NOTE | 2016-05-23 21:28 | ED MED RECONCILIATION SUMMARY ---
Patient: RODOLFO GARCIA Medication Reconciliation Report [facility] VisitID: [id number] [address] [place] [address] 81y, F Registration Date/Time: 05/17/2016 Weight: 115.6 kg Height/Length: 66 in. BMI: 41.2 ALLERGIES: Ciprofloxacin, Sulfa Antibiotics The patient's Home Medications are listed below: CONTINUE TAKING THE FOLLOWING MEDICATIONS: AmLODIPine Besylate Oral Aspirin Oral Benazepril HCl Oral Gabapentin Oral Glipizide Oral HumaLOG Subcutaneous Januvia Oral Lantus Subcutaneous Laxative Pills Oral PROzac Oral Simvastatin Oral The source(s) of the original Home Medication information: Not obtained. The following Medications were given to the patient in the Emergency Department: Augmentin [PO] PO 875 mg, administered: 05/17/2016 7:27:00 AM The following Medications were prescribed to the patient: Augmentin 875 mg: take 1 tablet orally every 12 hours for 10 days. No refill. Substitution is permissible. -- Zack Gallardo MD
--- NOTE | 2016-05-23 21:28 | ED DISCHARGE INSTRUCTIONS ---
Patient: RODOLFO GARCIA General Instructions [facility] VisitID: [id number] [place] [address] 81y, F Registration Date/Time: 05/17/2016 Complete nail avulsion to right 2nd toe. Diabetes. Stage 2 pressure ulcer with partial thickness skin loss on the right foot and left foot. Cellulitis present. INSTRUCTIONS Warnings: Further evaluation is necessary. GENERAL WARNINGS: Return or contact your physician immediately if your condition worsens or changes unexpectedly, if not improving as expected, or if other problems arise. Your Current Medications: CONTINUE TAKING THE FOLLOWING MEDICATIONS: AmLODIPine Besylate Oral. Aspirin Oral. Benazepril HCl Oral. Gabapentin Oral. Glipizide Oral. HumaLOG Subcutaneous. Januvia Oral. Lantus Subcutaneous. Laxative Pills Oral. PROzac Oral. Simvastatin Oral. Prescription Medications: Augmentin 875 mg: take 1 tablet orally every 12 hours for 10 days. No refill. Substitution is permissible. Understanding of the discharge instructions verbalized by patient. Follow-up with: [facility], , , [facility], [address] [place] [address] [address], [place], [address]; Ab Ovalles DPM, Podiatry, , [address] [place] [address]. [address], [place], [address] Follow up today. Call for an appointment. ADDITIONAL INFORMATION Diabetes (General Information) Cells of the body need glucose (sugar) for fuel. Insulin is the hormone in the body that lets glucose move from the blood into the cells. Diabetes is a chronic health condition where the body is not able to produce enough insulin, or does not respond well to its own insulin. Because the glucose in the blood cannot get into the cells, it builds up in the blood causing high blood sugar (hyperglycemia). Your actual blood sugar level is a result of the balance between several factors. These include what kind of food you eat and how much of it you eat, how much exercise you get, and the amount of insulin present in your body. Eating too much of the wrong kinds of food or not taking diabetes medicine on time can cause high blood sugar. Infections can cause high blood sugar even if you are taking medicines correctly. Missing meals, not eating enough food, or taking too much diabetes medicine can lead to low blood sugar. Untreated over long periods of time, diabetes can cause serious problems such as heart disease, stroke, kidney failure, blindness, nerve pain or loss of feeling in the legs and feet, and gangrene of the feet. With good treatment keeping your blood sugar under control, you can prevent or delay the complications of diabetes. Normal blood sugar levels are 70-130 one to two hours before a meal and not more than 180 two hours after a meal. Home Care: Follow your prescribed diabetic diet and take insulin or oral diabetic medicine exactly as ordered. Monitor blood sugars as advised. Keep a log of your results. This will help your doctor adjust your medicines to keep your blood sugar under control. Try to achieve your ideal weight. Proper diet and exercise can reduce or eliminate the need to take diabetes medicine. Avoid tobacco smoking, which worsens the effect of diabetes on your circulation. The risk of a heart attack in a diabetic is 15 times more likely if you smoke. Pay attention to good foot care. If you have lost feeling in your feet you may not notice an injury or infection. Check your feet and between your toes at least once a week. Wear a medical alert bracelet or carry a card in your wallet explaining that you are diabetic. In the event that you become very ill and are unable to give this information, it will help medical personnel provide proper care. If you become sick with a cold, the flu, or an infection (viral or bacterial), please do the following: Review your diabetes sick plan and contact your physician as instructed. You may have been advised to call the doctor immediately if: Your blood sugar is above 240 while taking your diabetes medication Your urine ketone levels are above normal or showing high levels of ketones You have been vomiting more than 6 hours You experience difficulty to trouble breathing You develop a high fever or you have had a fever for a couple of days and you aren't getting better You become light-headed and more sleepy than usual Keep taking your oral diabetes medicine (pills) even if you have been vomiting and feeling sick. Contact your doctor immediately for advice because you may need insulin to lower your blood sugar until you recover from your illness. Keep taking your insulin, even if you have been vomiting and feeling sick. Call your doctor immediately and ask if a temporary adjustment of your insulin dose is needed based on your blood glucose (sugar) results. Check your blood sugar every 2 to 4 hours, or at least 4 times a day. Check your keytones often. If you are vomiting and having diarrhea, monitor them more frequently. Don't skip meals. Try to eat small meals on a regular schedule, even if you do not have an appetite. Drink water or other calorie-free, non-caffeinated liquids to stay hydrated. If you are nauseated or vomiting, drink small amounts (sips, a teaspoon) every 5 minutes. To prevent dehydration, try to drink a cup or 8 ounces of fluids every hour while you are awake. Always carry a source of fast-acting sugar with you in case you get symptoms of low blood sugar (below 70). At the first sign of low blood sugar, eat or drink 15 to 20 grams of fast-acting sugar to raise your blood sugar. Examples include: 3 to 4 glucose tablets (found at most drugstores) 4 ounces (1/2 cup) of regular (not diet) softdrinks 4 ounces (1/2 cup) of any fruit juice 8 ounces (1 cup) of milk 5 to 6 pieces of hard candy 1 tablespoon of honey Check your blood sugar 15 minutes after treating yourself. If it is still low (below 70), take another 15 to 20 grams of fast-acting sugar. Test again in 15 minutes. If it returns to normal (70 or above), eat a snack or meal to keep your blood sugar in a safe range. If it remains low, call your doctor or go to an emergency room. Follow Up with your doctor as advised by our staff. For more information, contact the [place] [employer]. www.diabetes.org or 698-287-7695. Get Prompt Medical Attention if any of the following occur: HIGH BLOOD SUGAR: frequent urination, dizziness, drowsiness, thirst, headache, nausea or vomiting, abdominal pain, vision changes, fast breathing, confusion or loss of consciousness LOW BLOOD SUGAR: fatigue, headache, shakes, excess sweating, hunger, feeling anxious or restless, vision changes, drowsiness, weakness, confusion or loss of consciousness Chest pain or shortness of breath Dizziness or fainting Weakness of an arm or leg or one side of the face Trouble with speech or vision Decubitus Ulcer A decubitus ulcer starts as a pressure sore (red, tender area on skin). It is caused by lying on a bony area for long periods of time without turning, causing a decrease in blood flow to that part of the skin. Decubitus ulcers usually occur on the lower back, buttocks or heels in persons who spend most or all of their time in bed. Healing time is slow and depends on the size and depth of the ulcer. If a decubitus ulcer becomes infected, it will cause redness in the skin around the ulcer and pus will drain from the wound. If not treated early, a decubitus infection can spread to the bloodstream or nearby bone. Home care The following guidelines will help you care for your wound at home: All ulcers should be looked at every day with good lighting to watch for signs of infection. At the same time, check other skin pressure points for early signs of a skin changes. Changing positions every few hours allows blood to flow to the pressure areas. This is essential for healing to occur. Use of special mattresses (foam, water, air mattresses) and gelpads will help reduce the pressure on the skin. Special skin coverings that remain in place may be prescribed. If a simple bandage is used, change it daily and clean the ulcer with sterile saline or another solution advised by your doctor. Pat dry. Apply any prescribed lotion or cream. Cover with a dry clean gauze pad. Bed linen should be kept clean and dry. Avoid soiling the ulcer with feces or urine. If this is not possible, minimize the time of contact with the feces or urine. Follow-up care Follow up with your doctor as advised by our staff. When to seek medical care Get prompt medical attention if any of the following occur: Increasing redness around the wound Increasing local pain or swelling Pus draining from a wound (not already treated) Unexplained fever over 100.4F (38.0C) oral, or higher Amoxicillin Trihydrate, Clavulanate Potassium Oral tablet What is this medicine? AMOXICILLIN; CLAVULANIC ACID (a mox i JOANIE in; K[place] id) is a penicillin antibiotic. It is used to treat certain kinds of bacterial infections. It will not work for colds, flu, or other viral infections. How should I use this medicine? Take this medicine by mouth with a full glass of water. Follow the directions on the prescription label. Take at the start of a meal. Do not crush or chew. If the tablet has a score line, you may cut it in half at the score line for easier swallowing. Take your medicine at regular intervals. Do not take your medicine more often than directed. Take all of your medicine as directed even if you think you are better. Do not skip doses or stop your medicine early. Talk to your security researcher regarding the use of this medicine in children. Special care may be needed. What side effects may I notice from receiving this medicine? Side effects that you should report to your doctor or health vision care associate as soon as possible: allergic reactions like skin rash, itching or hives, swelling of the face, lips, or tongue breathing problems dark urine fever or chills, sore throat redness, blistering, peeling or loosening of the skin, including inside the mouth seizures trouble passing urine or change in the amount of urine unusual bleeding, bruising unusually weak or tired white patches or sores in the mouth or throat Side effects that usually do not require medical attention (report to your doctor or health vision care associate if they continue or are bothersome): diarrhea dizziness headache nausea, vomiting stomach upset vaginal or anal irritation What may interact with this medicine? allopurinol anticoagulants control pills methotrexate probenecid What if I miss a dose? If you miss a dose, take it as soon as you can. If it is almost time for your next dose, take only that dose. Do not take double or extra doses. Where should I keep my medicine? Keep out of the reach of children. Store at room temperature below 25 degrees C (77 degrees F). Keep container tightly closed. Throw away any unused medicine after the expiration date. What should I tell my health care provider before I take this medicine? They need to know if you have any of these conditions: bowel disease, like colitis kidney disease liver disease mononucleosis an unusual or allergic reaction to amoxicillin, penicillin, cephalosporin, other antibiotics, clavulanic acid, other medicines, foods, dyes, or preservatives or trying to get breast-feeding What should I watch for while using this medicine? Tell your doctor or health vision care associate if your symptoms do not improve. Do not treat diarrhea with over the counter products. Contact your doctor if you have diarrhea that lasts more than 2 days or if it is severe and watery. If you have diabetes, you may get a false-positive result for sugar in your urine. Check with your doctor or health vision care associate. control pills may not work properly while you are taking this medicine. Talk to your doctor about using an extra method of control. You have been given the following additional information: Diabetes, General Info Decubitus Ulcer Amoxicillin Trihydrate, Clavulanate Potassium Oral tablet (Electronically signed by Zack Gallardo MD 05/23/2016 21:28)
--- NOTE | 2016-05-23 21:28 | ED MAR SUMMARY ---
..... Medication Administration Record [facility] [address] [place] [address] Patient: RODOLFO GARCIA Visit ID: [id number] 81y, F Weight: 115.6 kg Height/Length: 66 in BMI: 41.2 ALLERGIES: Ciprofloxacin, Sulfa Antibiotics Given 07:27 05/17/2016 Krish Parker R.N. Medication Administered: AUGMENTIN [PO] (AMOXICILLIN-POT CLAVULANATE), Dose: 875 mg PO. Medication Ordered: Augmentin PO 875 mg (NOW).
== END 2016-05-17 08:30 | disposition home or self-care (01) ==
LOC: ED SRH 04:36
DX: S91.204A Unspecified open wound of right lesser toe(s) with damage to nail, initial encounter (principal); E11.621 Type 2 diabetes mellitus with foot ulcer; L97.419 Non-pressure chronic ulcer of right heel and midfoot with unspecified severity; X58.XXXA Exposure to other specified factors, initial encounter; Y99.9 Unspecified external cause status; Y93.9 Activity, unspecified; Y92.9 Unspecified place or not applicable; Z79.82 Long term (current) use of aspirin; Z79.4 Long term (current) use of insulin; Z79.899 Other long term (current) drug therapy
CPT/HCPCS: 90065; 90070; 90074; 90100; 90131; 90309; 90627; 91672; 92031; 92235; 92530; 95059